=== PATIENT | female | born 1985 | race Caucasian/White ===

== ENCOUNTER 2021-03-18 07:06 | Outpatient (CLI) | payer OTHER, SELFPAY ==
[2021-03-18 07:34] LABS: Basophils Absolute Auto 0.1 K/mm3 (0.0-0.1); Basophils Percent Auto 0.7 % (0.2-1.2); Eosinophils Absolute Auto 0.2 K/mm3 (0-0.3); Eosinophils Percent Auto 2.9 % (0-4.4); Hematocrit 39.4 % (37.0-47.0); Hemoglobin 12.4 g/dL (12.0-15.0); Immature Granulocyte Absolute 0.01 K/mm3 (0.00-0.031); Immature Granulocyte Percent A 0.1 % (0-0.5); Lymphocytes Absolute Auto 2.46 K/mm3 (0.9-3.2); Lymphocytes Percent Auto 36.2 % (18.3-44.2); Mean Corpuscular HGB Conc 31.5 g/dl (32-36); Mean Corpuscular Volume 85.8 fl (80-100); Mean Platelet Volume 9.8 fl (7.4-10.4); Monocytes Absolute Auto 0.5 K/mm3 (0.1-0.6); Monocytes Percent Auto 6.6 % (2.6-8.5); Neutrophils Absolute Auto 3.6 K/mm3 (1.3-6.7); Neutrophils Percent Auto 53.5 % (45.5-73.1); Platelet Count Result 357 k/mm3 (150-375); Red Blood Count 4.59 M/mm3 (4.2-5.4); Red Cell Distribution Width 12.6 % (11.5-14.5); White Blood Count 6.8 K/mm3 (4.5-10.0)
== END 2021-03-18 07:07 | disposition home or self-care (01) ==
LOC: ANHLAB 07:10
PROVIDERS: PCP Family Medicine; Visit Provider Obstetrics & Gynecology
DX: N85.2 Hypertrophy of uterus (principal); Z01.818 Encounter for other preprocedural examination
CPT/HCPCS: 36415; 85025; 86850; 86900; 86901

== ENCOUNTER 2021-03-20 01:30 | Day surgery (SDC) | payer OTHER, SELFPAY ==
[2021-03-17 18:22] VITALS: BMI 45.7
--- NOTE | 2021-03-18 11:40 | P.HP_ITS ---
H&P: HPI History of Present Illness Date/Time: 03/18/21 11:40 [age] year 4 para 4 admitted for robotic total vaginal hysterectomy salpingectomies secondary to enlarged uterus pelvic pain dyspareunia failed ablation resultant bleeding. Risks and benefits reviewed including exclusive of , aspiration bleeding, transfusion perforation bowel bladder or other organs with need for open. She received the ACOG handout entitled hysterectomy as well as the [place] handout. She had all questions a nswered. She asked to proceed Chief Complaint: enlarged uterus/ pelvic pain / failed ablation Review of Systems Review of Systems: All systems reviewed & are unremarkable except as noted in HPI and below PMFSH Past Medical History Medical History BMI 40.0-44.9, adult Morbid (severe) obesity due to excess calories Family History Family History Grandparent Diabetes mellitus Family history of malignant neoplasm of bone Father No problems noted. Mother No problems noted. Sibling Hyperthyroidism Obesity Hypertension Social History Social History Smoking status: Never smoker Second hand tobacco smoke exposure: No Alcohol intake: current Alcohol use details: very rarely; 1 every few months Substance use: never Substance use type: does not use Additional occupation/education comments: [employer] Gender identity (if verbalized by the patient): Female Spiritual care concerns: No Meds Home Medications and Allergies Home Medications Medication Instructions Recorded Confirmed Type cholecalciferol (vitamin D3) 1,250 1,250 mcg PO WEEKLY 56 Days #8 cap 02/17/21 03/17/21 Rx mcg (50,000 unit) capsule omeprazole 20 mg capsule,delayed 20 mg PO DAILY #30 cap 03/11/21 03/17/21 Rx release Allergies Allergy/AdvReac Type Severity Reaction Status Date / Time No Known Allergies Allergy Mild Verified 03/17/21 18:21 Exam Const: General: no acute distress Eyes: General: appearance normal, both eyes and all related structures Neck: Neck: supple and no JVD Thyroid: thyroid normal Resp: Effort & Inspection: normal respiratory effort Auscultation: clear to auscultation bilaterally Cardio: Rate: regular rate Rhythm: regular rhythm GI: Inspection: non-distended GI Palp: Yes Soft to palpation, No Tenderness to palpation present (GI) and No Guarding due to palpation present (GI) Auscultation: normal bowel sounds : External Female Exam: normal external appearance Speculum Exam - Vagina: normal appearance of the vagina Speculum Exam - Cervix: normal appearance of the cervix Bimanual exam- vagina & uterus: enlarged and Uterine tenderness Bimanual Exam- Adnexa, other: normal adnexae Skin: General skin exam: no rashes or lesions noted Extrem: General: normal to inspection and no edema Psych: Mental Status: mental status grossly normal Affect: normal affect Assessment and Plan Additional Plan impression: Enlarged uterus with pelvic pain and bleeding and failed ablation Plan: Robotic total vaginal hysterectomy and bilateral salpingectomies risks benefit
[2021-03-20] VITALS (14 sets, daily range): BP systolic 93–150; BP diastolic 57–86; PULSE 64–113; RESP 12–20; TEMP 36.3–37.1; O2SAT 92–100; BMI 44.7
--- NOTE | 2021-03-20 06:01 | WPDHPUPDATE1 ---
History and Physical Update Update Date/Time: 03/20/21 06:01 History and Physical has been reviewed, including an updated exam of the patient. There are NO changes in the patient's condition. Risks, benefits, and alternatives have been discussed and questions answered. Patient agrees to proceed with procedure.
--- NOTE | 2021-03-20 10:03 | P.PNAN_ITS ---
Anes - Initial Pre Proc Eval Procedure: Operation Date: 03/20/21 11:30 Proposed Procedures p Robotic Assisted Total Vaginal Hysterectomy, with Bilateral Salpingectomy - Davonte Black MD Date/Time: 03/20/21 10:03 Surgeon: Davonte Black MD Pre Op Diagnosis: enlarged uterus,pelvic pain,irregular bleeding, Patient Data Age: 35 Gender: F Height: 1.6 m Weight: 114.5 kg Allergies Allergy/AdvReac Type Severity Reaction Status Date / Time No Known Allergies Allergy Mild Verified 03/20/21 10:35 Home Medications Medication Instructions Recorded Confirmed Type cholecalciferol (vitamin D3) 1,250 1,250 mcg PO WEEKLY 56 Days #8 cap 02/17/21 03/20/21 Rx mcg (50,000 unit) capsule omeprazole 20 mg capsule,delayed 20 mg PO DAILY #30 cap 03/11/21 03/17/21 Rx release hydrocodone-acetaminophen 1 tablet PO Q4H PRN #30 tablet 03/20/21 Rx Patient hx anesthesia problems: none Family hx anesthesia problems: none PMFSH Past Medical History Medical History (Updated 03/20/21 @ 14:29 by Davonte Black MD) Asthma BMI 40.0-44.9, adult GERD (gastroesophageal reflux disease) Morbid (severe) obesity due to excess calories Family History Family History Grandparent Diabetes mellitus Family history of malignant neoplasm of bone Father No problems noted. Mother No problems noted. Sibling Hyperthyroidism Obesity Hypertension Social History Social History Second hand tobacco smoke exposure: No Alcohol intake: current Alcohol use details: very rarely; 1 every few months Substance use: never Substance use type: does not use Living arrangements: with family Additional occupation/education comments: [employer] Gender identity (if verbalized by the patient): Female Spiritual care concerns: No Anes - Eval Final PreProcedure Day of Procedure 03/20/21 10:03 Patient weight: morbidly obese Heart: regular rate and rhythm Lungs: clear to auscultation Airway: Mallampati scale class II Neurological: alert and oriented Last oral intake: >/= 8 hours ASA classification: III Emergent: no Anesthetic plan: proceed Anesthesia type and monitoring: general ETT and standard monitoring Informed Consent: The patient's anesthetic plan and its attendant risks and benefits were discussed with the patient/family/POA. Questions were solicited and answers provided to the satisfaction of the patient/family/POA.
[2021-03-20] MEDS: LACTATED RINGERS 1,000 ML 30 ML IV CONT ×3 (10:45→17:49)
[2021-03-20] MEDS: ACETAMINOPHEN 500 MG TABLET 1000 MG PO (10:50)
[2021-03-20] MEDS: KETOROLAC 15 MG/ML VIAL (*BKC) IV PUSH (10:50)
--- NOTE | 2021-03-20 11:50 | SUR.PREOP ---
1150- Notified patient and of delay for start time of procedure. Patient verbalized understanding.
[2021-03-20] MEDS: ceFAZolin 2 GM/D5W 50 ML 2 GM/50 ML BAG IVPB (14:50)
--- NOTE | 2021-03-20 16:01 | P.OP_ITS ---
Procedure Note - Detailed Date of Procedure 03/20/21 Pre-op Diagnosis enlarged uterus,pelvic pain,irregular bleeding, Post-op Diagnosis same Procedure Performed Robotic total vaginal hysterectomy and bilateral salpingectomies Surgeon Davonte Black MD Anesthesia general Indications this is a 35-year-old female with an enlarged uterus pelvic pain and bleeding refractory to medical therapy Findings enlarged uterus. Tubes status post tubal ligation. Normal-appearing ovaries bilaterally Description of Procedure the patient was prepped draped in the normal sterile fashion placed in dorsal lithotomy position. Under excellent general endotracheal anesthesia weighted speculum placed post fornix vagina. Anterior lip of the cervix grasped with a single-tooth tenaculum. Uterus sounded to 11cm. Serial dilatation with fragmented dilators performed followed by passage of the 10. WANDA and the 3. Cold cup. A 16 [place] catheter was placed. The remainder the instruments removed. Gloves were changed. A supraumbilical incision made the Veress needle passed in the abdomen. The abdomen filled with CO2 gas [id number]. The 8mm trocar advanced in the abdomen. Downside visualized no injury seen. Gas reattached patient placed in Trendelenburg and a stay and 2 incisions were made the right left lateral quadrant and 8mm trocars advanced under direct visualization a right upper quadrant incision made the 8mm trocar advanced under direct visualization assuring no injury. The robot was docked. Attention was turned to the procedure. Attention was turned to the console. The left round ligament grasped, burned, cut. An anterior incision was made reflecting the bladder away from the uterus and cervix. There was a fair amount of scar tissue from her previous sections and this was brought down sharply layer by layer. The round ligament on the right was grasped, burned, cut. Next the fallopian tube attached to the uterus was dissected away from the ovary and left to go with the specimen. This was repeated on contralateral side next the utero-ovarian ligament was skeletonized to conserve the left ovary this was was brought to the level of previously cut round ligament. Conserving the right ovary, the utero-ovarian ligament was clamped, burned, cut and brought to the level of previously cut round ligament. On the left cardinal and broad ligaments were serially skeletonized away from the uterus these were clamped, burned, cut and brought down the lateral edge of the uterus until the uterine vessels could be seen. These were large and tortuous and the grass, burned, cut. In like fashion the cardinal broad ligaments on the right were serially skeletonized. These were clamped burned and cut and brought down lateral edge of the uterus until the uterine vessels on the right could be seen. These were also large and tortuous and there were individually clamped, burned, cut. Blanching of the uterus was noted at that point. A colpotomy incision was made in the cervix uterus and portions of tube removed through the vagina. The vagina was then closed with continuous running 0V lock from lateral edge to lateral edge back to the midline. Irrigation undertaken to clear and hemostasis was assured blood loss was estimated 50cc. All sponge, needle, instrument counts were correct. There were no immediate complications Estimated Blood Loss 50 Drains No Packing No Pathology yes Complications No immediate complications Condition stable Disposition PACU
[2021-03-20] MEDS: fentaNYL CITRATE INJ (*CRX) 100 MCG/2 ML VIAL 25 MCG IV PUSH ×3 (16:31→17:52)
--- NOTE | 2021-03-20 17:08 | SUR.PHASEI ---
SBAR faxed @[phone] and OB 2nd legal administrative secretary notified.
--- NOTE | 2021-03-20 18:40 | PC.NURSE ---
Patient transferred to post room #279 via stretcher. Pt's sister waiting in room at time of transfer. Oriented to unit, room, information board, and post op care. Patient verbalizes understanding.
[2021-03-20] MEDS: KETOROLAC 30 MG/ML VIAL (*BKC) IV PUSH (19:09)
[2021-03-20] MEDS: DEXTROSE 5%/LACTATED RINGERS 1,000 ML 125 ML IV CONT (19:10)
[2021-03-20] MEDS: SIMETHICONE 80 MG TAB.CHEW PO ×2 (20:28→23:50)
[2021-03-20] MEDS: DOCUSATE SODIUM 100 MG CAPSULE PO (20:28)
[2021-03-20] MEDS: HYDROcodone/acetaminophen (*CRX) 5-325 MG TABLET 1 TAB PO ×2 (20:28→23:49)
[2021-03-21] MEDS: IBUPROFEN 600 MG TABLET PO (03:09)
[2021-03-21] MEDS: HYDROcodone/acetaminophen (*CRX) 5-325 MG TABLET 1 TAB PO ×2 (03:10→09:02)
[2021-03-21] MEDS: SIMETHICONE 80 MG TAB.CHEW PO ×2 (03:10→09:02)
[2021-03-21 04:34] VITALS: BP 114/63; PULSE 82; RESP 16; TEMP 36.5; O2SAT 99
[2021-03-21 04:36] VITALS: PULSE 82; RESP 16; O2SAT 99
[2021-03-21 06:04] LABS: Basophils Percent Auto 0.2 % (0.2-1.2); Hematocrit 33.8 % (37.0-47.0); Hemoglobin 10.9 g/dL (12.0-15.0); Immature Granulocyte Absolute 0.05 K/mm3 (0.00-0.031); Immature Granulocyte Percent A 0.5 % (0-0.5); Lymphocytes Absolute Auto 0.98 K/mm3 (0.9-3.2); Mean Corpuscular HGB Conc 32.2 g/dl (32-36); Mean Corpuscular Hemoglobin 27.7 pg (26-34); Mean Corpuscular Volume 85.8 fl (80-100); Mean Platelet Volume 10.6 fl (7.4-10.4); Monocytes Absolute Auto 0.4 K/mm3 (0.1-0.6); Monocytes Percent Auto 3.9 % (2.6-8.5); Neutrophils Absolute Auto 8.4 K/mm3 (1.3-6.7); Neutrophils Percent Auto 85.4 % (45.5-73.1); Platelet Count Result 300 k/mm3 (150-375); Red Blood Count 3.94 M/mm3 (4.2-5.4); Red Cell Distribution Width 12.7 % (11.5-14.5); White Blood Count 9.8 K/mm3 (4.5-10.0)
[2021-03-21 07:55] VITALS: BP 128/79; PULSE 90; RESP 18; TEMP 36.3; O2SAT 99
[2021-03-21] MEDS: DOCUSATE SODIUM 100 MG CAPSULE PO (09:02)
[2021-03-21] MEDS: ENOXAPARIN 40 MG/0.4 ML SYRINGE SUB-Q (09:03)
--- NOTE | 2021-03-21 10:28 | PM.GYNPNOP ---
CONTAINER REPAIRER - A/P Postoperative Procedures: Procedures Operation Date: 03/20/21 11:30 Actual Procedure Side Surgeon p Robotic Assisted Total Vaginal Hysterectomy, with Bilateral Salpingectomy Bilateral Davonte Black MD A: POD#1, doing well. P: Home to f/u 2 weeks. Time Spent With Patient Time with patient: less than 15 minutes CONTAINER REPAIRER- PN:Subj Post-Op Subjective Date/time seen: 03/21/21 10:28 Interval history: Pain OK. Tolerating diet. Voiding. Would like to go home. Exam Narrative: Exam Narrative: AVSS I/O OK ABD soft, nontender. Incisions c/d/i. EXT nontender CONTAINER REPAIRER - PN: Obj Data Vital Signs Vital Signs: Vital Signs - 24 hr 03/20/21 16:07 03/20/21 16:20 03/20/21 16:30 Temperature 36.4 C L Pulse Rate 86 72 69 Respiratory Rate 16 16 12 Blood Pressure 113/69 110/66 106/57 L Pulse Oximetry 97 96 98 03/20/21 16:45 03/20/21 17:00 03/20/21 17:15 Temperature Pulse Rate 69 67 82 Respiratory Rate 12 14 16 Blood Pressure 103/61 105/60 103/57 L Pulse Oximetry 98 92 96 03/20/21 17:30 03/20/21 17:45 03/20/21 18:00 Temperature Pulse Rate 77 64 73 Respiratory Rate 16 14 14 Blood Pressure 93/64 L 100/61 99/60 L Pulse Oximetry 95 96 97 03/20/21 18:15 03/20/21 18:28 03/20/21 18:40 Temperature 36.6 C Pulse Rate 86 76 64 Respiratory Rate 16 14 20 Blood Pressure 106/66 108/65 124/65 Pulse Oximetry 98 99 100 03/20/21 23:50 03/21/21 04:34 03/21/21 04:36 Temperature 36.3 C L 36.5 C Pulse Rate 70 82 82 Respiratory Rate 20 16 16 Blood Pressure 122/79 114/63 Pulse Oximetry 97 99 99 Intake/Output Intake/Output: Intake & Output 03/18/21 03/19/21 03/20/21 03/21/21 23:59 23:59 23:59 23:59 Intake Total 1630 700 Output Total 275 1050 Balance 1355 -350 Meds/Results Medications: Active Medications Generic Name Dose Route Start Last Admin Trade Name Freq PRN Reason Stop Dose Admin Hydrocodone Bitart/Acetaminophen 1 tab 03/20/21 18:32 03/21/21 09:02 Hydrocodone/Acetaminophen (*Crx) 5-325 Mg Tablet PO 1 tab Q3H PRN Administration Pain Rated 5 or Less Hydrocodone Bitart/Acetaminophen 1 tab 03/20/21 18:32 Hydrocodone/Acetaminophen (*Crx) 10-325 Mg Tablet PO Q3H PRN Pain Rated 6 or Greater Docusate Sodium 100 mg 03/20/21 18:32 03/21/21 09:02 Docusate Sodium 100 Mg Capsule PO 100 mg BID ALISON Administration Enoxaparin Sodium 40 mg 03/21/21 09:00 03/21/21 09:03 Enoxaparin 40 Mg/0.4 Ml Syringe SUB-Q 40 mg DAILY ALISON Administration Dextrose/Lactated Ringer's 1,000 mls @ 125 mls/hr 03/20/21 18:32 03/21/21 04:33 Dextrose 5%/Lactated Ringers IV CONT Not Given .Q8H ALISON Ibuprofen 600 mg 03/20/21 18:32 03/21/21 03:09 Ibuprofen 600 Mg Tablet PO 600 mg Q6H PRN Administration Cramping Ketorolac Tromethamine 30 mg 03/20/21 18:32 03/20/21 19:09 Ketorolac 30 Mg/Ml Vial (*Bkc) IV PUSH 03/25/21 18:33 30 mg Q6H PRN Administration Pain Rated 4-6 Morphine Sulfate 4 mg 03/20/21 18:32 Morphine Sulfate (*Crx) 4 Mg/Ml Inj IV PUSH Q4H PRN Severe breakthrough pain Naloxone HCl 0.1 mg 03/20/21 18:32 Naloxone Hcl 0.4 Mg/Ml Vial IV PUSH Q2M PRN Respiratory rate less than 10 Ondansetron HCl 4 mg 03/20/21 18:32 Ondansetron Inj 4 Mg/2 Ml Vial IV PUSH Q6H PRN Nausea And Vomiting Simethicone 80 mg 03/20/21 18:32 03/21/21 09:02 Simethicone 80 Mg Tab.Chew PO 80 mg Q2H PRN Administration Gas Labs CBC & Chem 7: 03/21/21 03:33 Labs: Laboratory Results - last 24 hr 03/21/21 03:33 WBC 9.8 RBC 3.94 L Hgb 10.9 L Hct 33.8 L MCV 85.8 MCH 27.7 MCHC 32.2 RDW 12.7 Plt Count 300 MPV 10.6 H Immature Gran % (Auto) 0.5 Neut % (Auto) 85.4 H Lymph % (Auto) 10.0 L [place] % (Auto) 3.9 Eos % (Auto) 0.0 Baso % (Auto) 0.2 Lymph # (Auto) 0.98 [place] # (Auto) 0.4 Eos # (Auto) 0.0 Baso # (Auto) 0.0 Abs Immat Gran (a
--- NOTE | 2021-03-21 11:32 | WPDANESPN ---
Anes - Prog Note Post-Op Date/Time: 03/21/21 11:32 Cardiovascular status: normal Respiratory status: normal Airway patency: baseline Mental status: baseline Post-Op hydration status: normal Vital Signs: Last Vital Signs Temp 36.5 C 03/21/21 04:34 Pulse 82 03/21/21 04:36 Resp 16 03/21/21 04:36 BP 114/63 03/21/21 04:34 Pulse Ox 99 03/21/21 04:36 Pain Score (VAS): 0 I/O: Intake & Output 03/20/21 03/21/21 03/21/21 23:59 07:59 15:59 Intake Total 1630 700 Output Total 275 1050 500 Balance 1355 -350 -500 Laboratory Tests 03/21/21 03:33 03/21/21 03:33 WBC 9.8 RBC 3.94 L Hgb 10.9 L Hct 33.8 L MCV 85.8 MCH 27.7 MCHC 32.2 RDW 12.7 Plt Count 300 MPV 10.6 H Immature Gran % (Auto) 0.5 Neut % (Auto) 85.4 H Lymph % (Auto) 10.0 L [place] % (Auto) 3.9 Eos % (Auto) 0.0 Baso % (Auto) 0.2 Lymph # (Auto) 0.98 [place] # (Auto) 0.4 Eos # (Auto) 0.0 Baso # (Auto) 0.0 Abs Immat Gran (auto) 0.05 H Absolute Neuts (auto) 8.4 H Absolute Nucleated RBC 0.0 Nucleated RBC % 0.0 Post-procedural complaints: none Patient Feedback: Patient satisfied with anesthetic care.
== END 2021-03-21 12:04 | disposition home or self-care (01) ==
LOC: ANHSURGERY 14:29 → ANHOB2 18:35
PROVIDERS: PCP Family Medicine; Visit Provider Obstetrics & Gynecology
PROC: (CPT 58552; principal; 2021-03-20 11:30)
DX: N85.2 Hypertrophy of uterus (principal); R10.2 Pelvic and perineal pain; N93.9 Abnormal uterine and vaginal bleeding, unspecified; K21.9 Gastro-esophageal reflux disease without esophagitis; E66.01 Morbid (severe) obesity due to excess calories; Z68.41 Body mass index [BMI] 40.0-44.9, adult
CPT/HCPCS: 58552; S2900; 36415; 85025; 86850; 86900; 86901; 88307; 99199; A9270; J0690; J1170; J1650; J1885; J2250; J3010; J7030; J7120; J7121

== ENCOUNTER 2023-06-14 09:41 | Outpatient (CLI) | payer OTHER, SELFPAY ==
--- NOTE | 2023-07-03 10:41 | WPDHOMESLEEP ---
Sleep Study - Home Unattended Date of Study: 06/14/23 Ordering Provider: Jacob Boswell MD Interpreting Provider: Cecilia Mcgill MD Home Sleep Study Type: Watch PAT Height: 1.61 m Weight: 111.584 kg Body Mass Index: 42.9 Neck Circumference (inches): 15 [place]: 24 Reason for Sleep Study Hypersomnolence Sleep History Pushpa Ruano is a 37-year-old woman with severe hypersomnolence. She works as a dispatcher. At night, she awakens multiple time coughing and choking. She rarely awakens from sleep short of breath. She occasionally wakes at night with heartburn, belching or coughing.??She frequently snores, occasionally snores loudly enough that others complain. She frequently has trouble sleeping when she has a cold. She frequently wakes up gasping for breath during the night. She rarely has breathing problems at night observed by others. She frequently sweats excessively at night. She rarely notices her heart pounding or beating irregularly during the night. She occasionally falls asleep during the day. She occasionally falls asleep involuntarily, and even occasionally falls asleep while driving. She rarely experiences loss of muscle tone with strong emotion. She rarely feels paralyzed on waking or falling asleep. She occasionally experiences vivid dreams upon waking or falling asleep. She never feels afraid of going to sleep. She occasionally has nightmares. She occasionally recalls her dreams. She frequently has thoughts racing through her mind. She frequently feels sad or depressed. She frequently feels anxiety. She occasionally notices parts of her body jerk. She occasionally kicks during the night. She occasionally feels crawling or aching feelings in her legs. She occasionally feels leg pain at night. She occasionally has morning jaw pain, and occasionally grinds her teeth at night. She rarely is bothered by pain during the day, and rarely is awakened by pain during the night. She occasionally wakes up feeling stiff in the morning, rarely wakes feeling sore or achy in the morning. She occasionally awakens with pain in her neck, spine, or joints. Normal bedtime is 11:30 p.m., falling asleep within 20-30 minutes. She wakes up 4-5 times during the night, will check her phone, and try to return to sleep. She is able to return to sleep within a few minutes. She reports getting between 5-6 hours of sleep per night. Her wake time is 5:45 a.m.She does not usually take naps. A short nap lasting 10-15 minutes may be refreshing. She is drowsy for 2 hours after waking. Even though she is drowsy on waking, she feels better in the morning compared to other times of day. Habits:??Tobacco:never Caffeine:1 per day. Alcohol:3-4 per month Recreational substances: none PMFSH Past Medical History Medical History Asthma BMI 33.0-33.9,adult BMI 40.0-44.9, adult BMI over 35 GERD (gastroesophageal reflux disease) Morbid (severe) obesity due to excess calories Surgical History Surgical History H/O: hysterectomy Family History Family History Grandparent Diabetes mellitus Family history of malignant neoplasm of bone Father Mother No problems noted. Sibling Hyperthyroidism Obesity Hypertension Diabetes mellitus Social History Social History Smoking status: Never smoker Second hand tobacco smoke exposure: No Alcohol intake: current Alcohol use details: very rarely; 1 every few months Substance use: never Substance use type: does not use Lack of Transportation: No Lack of Food: Never True Current Housing: I Have Housing Concerned About Future Housing: No Difficulty Paying Gas/Electric Bills: No Difficulty Paying for Meds: No Currently Unemployed: No Edu
[2023-07-03 10:57] VITALS: BMI 42.9
== END 2023-06-14 12:00 | disposition home or self-care (01) ==
LOC: ANHCSM 09:42
PROVIDERS: PCP Family Medicine; Visit Provider Family Medicine
DX: G47.30 Sleep apnea, unspecified (principal); G47.10 Hypersomnia, unspecified
CPT/HCPCS: 95800

== ENCOUNTER → 2023-10-06 10:20 | Outpatient (CLI) | payer OTHER, SELFPAY ==
--- NOTE | ~2023-10-06 | US_ITS ---
EXAMINATION: US thyroid DATE: 10/06/2023 10:38 INDICATION: Dysphagia, unspecified. TECHNIQUE: Multiple ultrasound images of the thyroid were obtained. COMPARISON: None. FINDINGS: The right thyroid lobe measures 4.0 x 1.5 x 1.4 cm. The left thyroid lobe measures 4.4 x 1.2 x 1.6 c m. There is normal echotexture and echogenicity throughout the thyroid gland. No discrete nodules id entified. Normal vascular flow is present. IMPRESSION: 1. Normal thyroid. Reviewed, dictated and finalized at location [facility]. [facility] [employer] IMPRESSION: 1. Normal thyroid.
== END ==
PROVIDERS: PCP Family Medicine; Visit Provider Nurse Practitioner Family
DX: R13.10 Dysphagia, unspecified (principal); R22.1 Localized swelling, mass and lump, neck
CPT/HCPCS: 76536

== ENCOUNTER 2023-10-17 01:47 | Day surgery (SDC) | payer OTHER, SELFPAY ==
[2023-10-13 10:52] VITALS: BMI 46.4
--- NOTE | 2023-10-14 11:41 | SUR.PREOP ---
Patient called regarding upcoming procedure. Reviewed preop instructions, appointment times, and procedure prep.
[2023-10-17 13:19] VITALS: BP 132/93; PULSE 86; RESP 20; TEMP 36.1; O2SAT 100; BMI 46.7
[2023-10-17] MEDS: LACTATED RINGERS 1,000 ML 150 ML IV CONT (13:31)
[2023-10-17 13:41] VITALS: BP 132/93; PULSE 91; RESP 16; O2SAT 100
--- NOTE | 2023-10-17 13:42 | WPDANESEPPF ---
Anes - Initial Pre Proc Eval Procedure: Operation Date: 10/17/23 14:30 Proposed Procedures p Esophagogastroduodenoscopy EGD - Jakob Vela MD Date/Time: 10/17/23 13:42 Surgeon: Jakob Vela MD Pre Op Diagnosis: dysphagia unspecified Patient Data Age: 38 Gender: F Height: 1.6 m Weight: 119.8 kg Last Vital Signs Temp 96.9 F L 10/17/23 13:19 Pulse 86 10/17/23 13:19 Resp 20 10/17/23 13:19 BP 132/93 H 10/17/23 13:19 Pulse Ox 100 10/17/23 13:19 O2 Del Method Room Air 10/17/23 13:19 Allergies Allergy/AdvReac Type Severity Reaction Status Date / Time No Known Allergies Allergy Mild Verified 10/17/23 13:18 Home Medications Medication Instructions Recorded Confirmed Type duloxetine 60 mg capsule,delayed 60 mg PO DAILY #30 caps 08/31/23 10/17/23 Rx release ferrous sulfate 325 mg (65 mg 325 mg PO DAILY #90 tabs 10/10/23 10/17/23 Rx iron) tablet,delayed release cholecalciferol (vitamin D3) 1,250 1,250 mcg PO WEEKLY 8 weeks #8 caps 10/11/23 10/17/23 Rx mcg (50,000 unit) capsule Patient hx anesthesia problems: none Family hx anesthesia problems: none Results Review: All pre-operative results and documents have been reviewed as part of the pre-operative evaluation. [facility] Past Medical History Medical History (Updated 10/10/23 @ 11:52 by Greg Castro NP) Asthma BMI 33.0-33.9,adult BMI 40.0-44.9, adult BMI over 35 delivery delivered GERD (gastroesophageal reflux disease) Morbid (severe) obesity due to excess calories Morbid obesity Surgical History Surgical History H/O: hysterectomy Family History Family History (Updated 10/05/23 @ 08:18 by ALMAS Martinez) Grandparent Diabetes mellitus Family history of malignant neoplasm of bone Father Mother No problems noted. Sibling Hyperthyroidism Obesity Hypertension Diabetes mellitus Depression Social History Social History (Updated 10/05/23 @ 08:18 by [facility] Smoking status: Never smoker Second hand tobacco smoke exposure: No Alcohol intake: current Alcohol use details: rarely Substance use: never Substance use type: does not use Do You Feel Safe in your Home?: Yes Lack of Transportation: No Lack of Food: Never True Current Housing: I Have Housing Concerned About Future Housing: No Difficulty Paying Gas/Electric Bills: No Difficulty Paying for Meds: No Currently Unemployed: No Education: Trade/Vocational Certificate Difficulty w/ Childcare or Family Care: No Living arrangements: with family Occupation/Education: occupation 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 Gender identity (if verbalized by the patient): Female Spiritual care concerns: No Anes - Eval Final PreProcedure Day of Procedure 10/17/23 13:42 Patient weight: morbidly obese Heart: regular rate and rhythm Lungs: clear to auscultation Airway: Mallampati scale class II Neurological: alert and oriented Last oral intake: >/= 8 hours ASA classification: III Emergent: no Anesthetic plan: proceed Anesthesia type and monitoring: general GIVS and standard monitoring Results Review: All pre-operative results and documents have been reviewed as part of the pre-operative evaluation. Informed Consent: The patient's anesthetic plan and its attendant risks and benefits were discussed with the patient/family/POA. Questions were solicited and answers provided to the satisfaction of the patient/family/POA.
--- NOTE | 2023-10-17 14:05 | PM.HPGS ---
History of Present Illness History of Present Illness Consent: Risks, benefits, and alternatives have been discussed and questions answered. Patient agrees to proceed with procedure. Chief complaint: dysphagia unspecified Narrative: Pushpa Ruano is a 38 year old female with sensation lump in throat, never had egd. Thyroid ultrasound was normal. Review of Systems Constitutional: Constitutional: Denies headache(s) and Denies weakness Eyes: Eyes: Denies blurry vision ENT: Reports Normal hearing present, Denies headache(s) and Denies neck pain Cardiovascular: Cardiovascular: Denies chest pain and Denies dyspnea Respiratory: Respiratory: Denies dyspnea Gastrointestinal: Gastrointestinal: Reports no additional gastrointestinal complaints Genitourinary: Genitourinary: Denies dysuria Musculoskeletal: Musculoskeletal: Denies neck pain Integumentary/Breasts: Skin/Breast: Denies dry skin Neurologic: Reports Normal hearing present, Denies headache(s) and Denies weakness Psychiatric: Psychiatric: Denies anxiety Endocrine: Endocrine: Denies change in body appearance Hematologic/Lymphatic: Hematologic/Lymphatic: Denies easy bleeding Allergic/Immunologic: Allergic/Immunologic: Denies urticaria PMFSH Past Medical History Medical History (Updated 10/17/23 @ 14:07 by Jakob Vela MD) Asthma BMI 33.0-33.9,adult BMI 40.0-44.9, adult BMI over 35 delivery delivered GERD (gastroesophageal reflux disease) Lump in throat Morbid (severe) obesity due to excess calories Morbid obesity Surgical History Surgical History H/O: hysterectomy Family History Family History (Updated 10/05/23 @ 08:18 by ALMAS Martinez) Grandparent Diabetes mellitus Family history of malignant neoplasm of bone Father Mother No problems noted. Sibling Hyperthyroidism Obesity Hypertension Diabetes mellitus Depression Social History Social History (Updated 10/05/23 @ 08:18 by ALMAS Martinez) Smoking status: Never smoker Second hand tobacco smoke exposure: No Alcohol intake: current Alcohol use details: rarely Substance use: never Substance use type: does not use Do You Feel Safe in your Home?: Yes Lack of Transportation: No Lack of Food: Never True Current Housing: I Have Housing Concerned About Future Housing: No Difficulty Paying Gas/Electric Bills: No Difficulty Paying for Meds: No Currently Unemployed: No Education: Trade/Vocational Certificate Difficulty w/ Childcare or Family Care: No Living arrangements: with family Occupation/Education: occupation 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 Gender identity (if verbalized by the patient): Female Spiritual care concerns: No Meds Home Medications and Allergies Home Medications Medication Instructions Recorded Confirmed Type duloxetine 60 mg capsule,delayed 60 mg PO DAILY #30 caps 08/31/23 10/17/23 Rx release ferrous sulfate 325 mg (65 mg 325 mg PO DAILY #90 tabs 10/10/23 10/17/23 Rx iron) tablet,delayed release cholecalciferol (vitamin D3) 1,250 1,250 mcg PO WEEKLY 8 weeks #8 caps 10/11/23 10/17/23 Rx mcg (50,000 unit) capsule Allergies Allergy/AdvReac Type Severity Reaction Status Date / Time No Known Allergies Allergy Mild Verified 10/17/23 13:18 Vital Signs Vital Signs - 24 hr 10/17/23 13:19 Temperature 96.9 F L Pulse Rate 86 Respiratory Rate 20 Blood Pressure 132/93 H Pulse Oximetry 100 Oxygen Delivery Room Air Exam Const: General: comfortable, no acute distress and obese HENMT: Face/Nose/Sinus: Normal nares present Eyes: General: appearance normal, both eyes and all related structures Neck: Neck: no JVD Resp: Auscultation: clear to auscultation bilaterally Cardio: Rate: regular rate Rhythm: regular rhythm G
[2023-10-17 14:21] VITALS: BP 120/84; PULSE 103; RESP 21; O2SAT 100
[2023-10-17 14:31] VITALS: BP 132/93; PULSE 87; RESP 18; O2SAT 100
== END 2023-10-17 14:50 | disposition home or self-care (01) ==
PROVIDERS: PCP Family Medicine; Visit Provider Internal Medicine Gastroenterology
PROC: 0DJ08ZZ Inspection of Upper Intestinal Tract, Via Natural or Artificial Opening Endoscopic (ICD-10-PCS; CPT 43235; principal; 2023-10-17 14:30)
DX: R13.10 Dysphagia, unspecified (principal); R22.1 Localized swelling, mass and lump, neck; J45.909 Unspecified asthma, uncomplicated; K21.9 Gastro-esophageal reflux disease without esophagitis; E66.01 Morbid (severe) obesity due to excess calories; Z68.42 Body mass index [BMI] 45.0-49.9, adult; Z80.8 Family history of malignant neoplasm of other organs or systems
CPT/HCPCS: 43239; 88305; J2001; J2704; J7120

== ENCOUNTER 2024-08-14 07:52 | Outpatient (CLI) | payer OTHER, SELFPAY ==
[2024-08-14 09:22] LABS: Cortisol Random 0.77 ug/dL
== END 2024-08-14 07:53 | disposition home or self-care (01) ==
PROVIDERS: PCP Family Medicine; Visit Provider Nurse Practitioner Family
DX: L67.8 Other hair color and hair shaft abnormalities (principal); E66.9 Obesity, unspecified; F32.9 Major depressive disorder, single episode, unspecified; G47.00 Insomnia, unspecified; R73.09 Other abnormal glucose
CPT/HCPCS: 36415; 82533

== ENCOUNTER 2025-01-22 10:39 | Outpatient (CLI) | payer OTHER, SELFPAY ==
--- NOTE | ~2025-01-22 | MR_ITS ---
EXAMINATION: MR brain/brain stem wo/w con DATE: 01/22/2025 11:39 INDICATION: Disorder of pituitary gland. TECHNIQUE: Magnetic resonance imaging (MRI) of the brain and brainstem was performed without and with 20 mL Multihance intravenous contrast. Whole-brain sequences included sagittal T1-weighted FSE, axia l diffusion-weighted FS EPI, axial T2*-weighted GRE, axial T2-weighted FLAIR Propeller, and axial T2- weighted Propeller. Small sbmlb-[id number] sequences included sagittal and coronal T1-weighted FSE cente red at the pituitary. Postcontrast sequences included small [id number] coronal T1-weighted FSE in a time course and sagittal T1-weighted FSE and whole-brain axial T1-weighted FSE. Apparent diffusion coefficient (ADC) maps were created. COMPARISON: None. FINDINGS: There are no areas of restricted diffusion to suggest acute infarction. No intracranial hemorrhage or abnormal intracranial mass lesion. Specifically no abnormal lesions identified within the pituitary glands. The pituitary is however flattened along the floor of the sella with a concave cephalad yari n, empty sella , which can be seen in the setting of idiopathic intracranial hypertension. Pituitary stalk is midline. There are no intraparenchymal signal abnormalities seen on the other pulse sequenc es. The ventricles are symmetric and normal in size. There are no abnormal extra-axial fluid collecti ons. Flow voids are seen in the cerebral arteries on the T2-weighted sequences consistent with their expected patency. Very 1 malformation with the cerebellar tonsils extending below the level of the fo ramen magnum by 9 mm on the right and 5 on the left. There is effacement of CSF space at the level of the foramen magnum with the formation of the left posterior aspect of the medulla. Mild mucosal thic kening the bilateral ethmoid and maxillary sinuses. Mild mucosal thickening bilateral ethmoid and max illary sinuses. Visualized orbits and soft tissues are unremarkable. There are no areas of abnormal e nhancement on the post contrast images. IMPRESSION: 1. No acute intracranial process. 2. No pituitary nodules. There is however a empty sella with pituitary flattened with concave cepha lad margin along the floor of the sella which can be seen with idiopathic intracranial hypertension. 3. 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 Reviewed, dictated and finalized at location A. IMPRESSION: 1. No acute intracranial process. 2. No pituitary nodules. There is however a empty sella with pituitary flatte darcie with concave cephalad margin along the floor of the sella which can be seen with idiopathic intracranial hypertension. 3. 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
== END 2025-01-22 10:40 | disposition home or self-care (01) ==
LOC: MICIMG 10:40
PROVIDERS: PCP Family Medicine; Visit Provider Internal Medicine Endocrinology, Diabetes & Metabolism
DX: E23.7 Disorder of pituitary gland, unspecified (principal); G93.5 Compression of brain
CPT/HCPCS: 70553; A9577

== ENCOUNTER 2025-02-01 13:16 | Outpatient (CLI) | payer OTHER, SELFPAY ==
--- NOTE | ~2025-02-01 | CT_ITS ---
EXAMINATION: CT abdomen wo con DATE: 02/01/2025 13:34 INDICATION: Disorder of the adrenal glands TECHNIQUE: Computed tomography (CT) of the abdomen was performed without intravenous contrast. The do se-length product was 764.24 mGy-cm. Automated exposure control and iterative reconstruction techniqu e were employed. COMPARISON: None. FINDINGS: Lung bases are unremarkable. Heart size normal. No significant pleural or pericardial effus ion. No significant vascular abnormality. No lymphadenopathy. There are gallstones. The liver, spleen , pancreas, adrenal glands and kidneys are unremarkable. No free air or free fluid. No acute osseous abnormality. IMPRESSION: 1. No significant abnormality of the adrenal glands. 2: Cholelithiasis. Reviewed, dictated and finalized at location A.
== END 2025-02-01 13:17 | disposition home or self-care (01) ==
LOC: MICIMG 13:18
PROVIDERS: PCP Family Medicine; Visit Provider Internal Medicine Endocrinology, Diabetes & Metabolism
DX: K80.20 Calculus of gallbladder without cholecystitis without obstruction (principal)
CPT/HCPCS: 74150